=== PATIENT | female | born 1955 | race Caucasian/White ===

== ENCOUNTER 2016-12-19 07:27 | Observation (INO) | payer BC ==
[~2016-12-19] VITALS: Ht 165.1 cm; Wt 89.7 kg
[2016-12-19 08:06] LABS: BASOPHIL COUNT 0.1 K/uL (0-0.1); EOSINOPHIL (%) 0.3 % (0-5); HEMATOCRIT 45.2 % (36.0-46.0); IMMATURE GRANULOCYTE (%) 0.4 % (0.0-0.7); INSTRUMENT ABS NEUTROPHIL CT 9.1 K/uL; LYMPHOCYTE COUNT 1.2 K/uL (1.0-2.8); MCH 29.3 PG (29.0-34.0); MCHC 34.1 G/DL (30.0-36.0); MCV 85.9 FL (83-99); MEAN PLAT.VOLUME 10.6 uM^3 (9.5-12.4); MONOCYTE (%) 4.7 % (3-12); MONOCYTE COUNT 0.5 K/uL (0-0.8); NEUTROPHIL (%) 83.4 % (45-76); NEUTROPHIL COUNT 9.1 K/uL (1.8-6.4); PLATELET COUNT 280 K/uL (156-360); RED BLOOD COUNT 5.26 M/uL (3.80-5.20); WHITE BLOOD COUNT 10.9 K/uL (4.1-10.2)
[2016-12-19 08:29] LABS: ADD MIUA? YES; BILIRUBIN NEGATIVE; BLOOD MODERATE; COLOR YELLOW ((YELLOW)); GLUCOSE (STRIP) NEGATIVE; KETONES 5; LEUKOCYTES NEGATIVE; NITRITE NEGATIVE; PROTEIN (STRIP) 30; SPECIFIC GRAVITY 1.024 (1.000-1.030); UROBILINOGEN 0.2 MG/DL (0.2-1.0)
[2016-12-19 08:32] LABS: CHLORIDE 104 mEq/L (99-109); POTASSIUM 4.2 mEq/L (3.7-5.4); SODIUM 140 mEq/L (136-147)
[2016-12-19 08:34] LABS: GLUCOSE 111 mg/dL (70-99)
[2016-12-19 08:35] LABS: BACTERIA NONE SEEN /HPF; CALCIUM OXALATE CRYSTALS 2+ /HPF; EPITHELIAL CELLS RARE /HPF; HYALINE CASTS 0-5 /LPF; MUCUS TRACE /LPF; RED BLOOD CELLS 0-5 /HPF (0-5); UNCLASSIFIED CASTS 0-5 /LPF; WHITE BLOOD CELLS 0-5 /HPF (0-5)
[2016-12-19 08:35] LABS: ANION GAP 11 MEQ/L (2-14)
[2016-12-19 08:36] LABS: TOTAL BILIRUBIN 0.5 mg/dL (0.0-1.0)
[2016-12-19 08:38] LABS: ALKALINE PHOSPHATASE 98 IU/L (3-129); GFR ESTIMATE (CALCULATED) > 59 mL/min/
[2016-12-19 08:39] LABS: UREA NITROGEN (BUN) 14 mg/dL (9-23)
[2016-12-19 08:41] LABS: LIPASE 10 U/L (1.0-51.0)
[2016-12-19] MEDS ORDERED: LEVO-T112 MCG PO (12:06)
[2016-12-19] MEDS ORDERED: CHANTIX1 MG PO (12:06)
[2016-12-19] MEDS ORDERED: HYDROCODON-ACE1 EA11 PO (15:08)
[2016-12-19] MEDS ORDERED: OXYCODONE HCL5 MG PO (15:08)
[2016-12-19 15:45] VITALS: BP 153/69
[2016-12-19 20:22] VITALS: BP 134/75
== END 2016-12-19 21:30 | disposition home or self-care (01) ==
LOC: EME 07:27 → EDOF 11:35 → 2SOUTH 15:29 → 2EAST 15:45
PROVIDERS: Emergency Medicine
PROC: 0FT44ZZ Resection of Gallbladder, Percutaneous Endoscopic Approach (ICD-10-PCS; principal; 2016-12-19)
DX: K80.12 Calculus of gallbladder with acute and chronic cholecystitis without obstruction (principal); K82.1 Hydrops of gallbladder; G47.30 Sleep apnea, unspecified; E03.9 Hypothyroidism, unspecified; F17.203 Nicotine dependence unspecified, with withdrawal
CPT/HCPCS: 76705; 80053; 81003; 83690; 85025; 88304; 93005; 99281; 99285; G0378; J0131; J1170; J1644; J2270; J2405; J3010; J7030; S0020